=== PATIENT | female | born 1985 | race Caucasian/White ===

== ENCOUNTER 2018-05-03 16:23 | Emergency (ER) | payer OTHER ==
[~2018-05-03] VITALS: Ht 172.7 cm; Wt 54.5 kg
[~2018-05-03 16:23] MED LIST: LOPRESSOR50 PO; POTASSIUM20 PO; XANAX 0.5 MG0.5 MG PO
[2018-05-03 16:47] LABS: HEMOGLOBIN 10.5 gm/dL (12.0-15.0); MCH 33.2 pg (26.0-34.0); MCV 97.8 fL (80.0-100.0); PLATELET COUNT 294 thou/uL (150-400); RBC 3.17 mil/uL (4.20-5.00); RDW 15.3 % (10.5-14.5); WBC 31.2 thou/uL (4.0-11.0)
[2018-05-03 16:55] LABS: CALCIUM 7.6 mg/dL (8.5-10.1); CREATININE 8.3 mg/dL (0.6-1.0)
[2018-05-03 16:58] LABS: URINE COLOR BROWN
[2018-05-03 16:59] LABS: URINE BILIRUBIN 3+ (Negative); URINE BLOOD TRACE (Negative); URINE CLARITY SLIGHTLY CLOUDY; URINE GLUCOSE-RANDOM* TRACE (Negative); URINE KETONES TRACE (Negative); URINE LEUKOCYTES-REFLEX TRACE (Negative); URINE NITRITE-REFLEX NEGATIVE (Negative); URINE PROTEIN (DIPSTICK) 1+ (Negative); URINE SPECIFIC GRAVITY 1.025 (1.005-1.035)
[2018-05-03 17:00] LABS: INR 2.2; PROTIME 22.4 Seconds (9.3-11.4); TOTAL BILIRUBIN 17.3 mg/dL (<0.1-1.0); TOTAL PROTEIN 4.9 g/dL (6.4-8.2)
[2018-05-03 17:02] LABS: ICTOTEST (BILI CONFIRMATORY) Positive (Negative)
[2018-05-03 17:03] LABS: AMORPHOUS URATES Moderate /LPF (None Seen); URINE WBC-REFLEX 6-15 Few /HPF (0-5)
[2018-05-03 17:04] LABS: BACTERIA-REFLEX 1-9 Few /HPF (None Seen); CASTS None Seen /LPF (None Seen); SQUAMOUS 0-3 Few /LPF (0-3); URINE RBC 0-2 Rare /HPF (0-2)
[2018-05-03 17:15] LABS: ABSOLUTE NEUTROPHILS 25.6 thou/uL (1.4-8.2); MYELOCYTES 3 %
[2018-05-03 17:18] LABS: ANISOCYTOSIS 2+
[2018-05-03 17:19] LABS: BURR CELLS OCCASIONAL; TARGET CELLS 1+
[2018-05-03 17:29] LABS: DIRECT BILIRUBIN 14.4 mg/dL (<0.1-0.3); TOTAL BILIRUBIN 17.3 mg/dL (<0.1-1.0)
[2018-05-03 21:45] VITALS: BP 91/55
== END 2018-05-03 21:55 | disposition short-term general hospital (02) ==
LOC: ER 16:23
PROVIDERS: Emergency Medicine
DX: K72.90 Hepatic failure, unspecified without coma (principal); D72.829 Elevated white blood cell count, unspecified; N19 Unspecified kidney failure; F10.20 Alcohol dependence, uncomplicated; R41.0 Disorientation, unspecified; I10 Essential (primary) hypertension; F41.9 Anxiety disorder, unspecified; Y90.0 Blood alcohol level of less than 20 mg/100 ml